=== PATIENT | male | born 1960 | race Caucasian/White ===

== ENCOUNTER 2023-12-13 10:16 | Outpatient (CLI) | payer OTHER, SELFPAY ==
--- NOTE | 2023-12-13 10:29 | XR_ITS ---
WS: [id number] Examination: XR chest 2V* [id number] Reason for Exam: CHRONIC COUGH Date: 12/13/2023 Comparison: None. Findings: The heart is not enlarged. There is widening of the right paramediastinal region. Adenopathy is of co ncern There is dominant right upper lobe infiltrate and right basilar effusion. There is no failure. The left lung appears well expanded. Impression: There is widening of the mediastinum concerning for adenopathy. A mass may be present. There is right upper lobe infiltrate and right pleural effusion. Further evaluation with CT of the chest is needed I discussed these findings and recommendations with Dr. Tiffanie Sanchez DO at 11:02 a.m. December 13 024..
== END 2023-12-13 10:17 | disposition home or self-care (01) ==
PROVIDERS: PCP Family Medicine; Visit Provider Family Medicine
DX: R05.3 Chronic cough (principal); J90 Pleural effusion, not elsewhere classified; R91.8 Other nonspecific abnormal finding of lung field
CPT/HCPCS: 71046

== ENCOUNTER 2023-12-14 13:56 | Outpatient (CLI) | payer OTHER, SELFPAY ==
--- NOTE | 2023-12-14 14:05 | CT_ITS ---
WS: [id number] CT chest w con* [id number] HISTORY: LUNG MASS TECHNIQUE: Axial imaging performed through the thorax. Coronal and sagittal reformats are submitted. All CT scans at [facility] use at least one of these dose optimization techniques: automated exposure control; mA and/or kV adjustment per patient size (includes targeted exams where dose is mat ched to clinical indication); or iterative reconstruction. CONTRAST: Omnipaque 350; 100 mL IV. DLP: 579.21 mGy.cm COMPARISON: Chest radiograph 12/13/2023 Abnormal appearance to the chest. There is a large mass centered at the RIGHT hilum which is encasing and partially narrowing the RIGHT proximal bronchi. This mass at its epicenter measures 5.9 x 8.5 cm. This mass is contiguous surround ing the bronchial tree and extending into the mediastinum. This is probably a large cluster of lymph nodes. There is additional soft tissue continuing into the central lung encasing the bronchial tree. Additional areas of reticular nodular opacification may be lymphangitic spread of tumor which is pred ominantly in the RIGHT upper lobe but also extends into the RIGHT middle and RIGHT lower lobes. There is marked thickening and nodularity along the pleural fissures. The soft tissue mass extends posteri or and may be invading the pleura in the upper thorax. There is an additional small layering RIGHT pl eural effusion and small small nodules in the lower lobe. There are numerous but very small nodules throughout the LEFT lung with the largest measuring 5 mm in the LEFT lower lobe. Cluster of lymph nodes RIGHT supraclavicular measures 3.8 x 3.1 cm. There are additional enlarged lym ph nodes prevascular and anterior mediastinum adenopathy extending paratracheal. One of the lymph nod es partially narrows the brachiocephalic junction. There is mild displacement of the SVC anterior. La rgest RIGHT drea collection is 6.8 x 4.9 cm. There is a large subcarinal lymph node measuring 4.4 x 3.2 cm. Additional aortopulmonary and LEFT hilar lymph nodes are abnormal but smaller. Normal size heart. There is a small pericardial effusion. There are a few small lymph nodes in the pe ricardiac fat. 10 mm nodule RIGHT breast. Upper abdomen: Numerous low-attenuation masses within the liver highly suspicious for metastatic dise ase. The largest is adjacent to the IVC measuring 2.3 cm. Portal vein is patent. Please note the enti re liver is not imaged on this chest CT. The visualized gallbladder is negative. Very minimal thicken ing of the RIGHT adrenal gland. There is a lobulated low-attenuation mass involving the LEFT adrenal gland measuring 3.3 x 1.8 cm. Nonobstructing calcifications LEFT renal pelvis. Osseous structures: Lytic area in the posterior T12 vertebral body suspicious for metastatic site. IMPRESSION: 1. There is a large solid mass centered at the RIGHT hilum extending into the central lung and the m ediastinum. This is probably lymphadenopathy/squamous cell carcinoma. Metastatic disease is likely. P ET/CT imaging would provide additional information. Recommend evaluation by bronchoscopy. 2. The largest mass centered at the RIGHT hilum measures 5.9 x 8.5 cm which is contiguous into the m ediastinum and hilum. Additional reticular nodular opacifications and pleural thickening throughout t he RIGHT lung are highly suspicious for lymphangitic spread and additional smaller metastatic sites. 3. Extensive lymphadenopathy throughout the chest including the RIGHT supraclavicular, mediastinum a nd hilum. 4. Small layering RIGHT pleural effusion. 5. Suspicious for metastatic liver disease. 6. Suspicious for LEFT adrenal metastasis. 7. Lytic area in the posterior T12 vertebral body may be osseous metastasis. 8. Additional very small LEFT pulmonary nodules may be benign inflammatory or metastatic. 9. 10 mm RIGHT breast nodule. Diagnostic mammography can be obtained.
[2023-12-14 14:37] LABS: Blood Urea Nitrogen 13 mg/dL (8-23); Glomerular Filtration Rate 135.6 mL/min (90-130)
[2023-12-14] MEDS: iohexol 350 mg/mL 500 mL Btl (per mL) IV (14:42)
== END 2023-12-14 13:57 | disposition home or self-care (01) ==
PROVIDERS: PCP Family Medicine; Visit Provider Family Medicine
DX: R91.8 Other nonspecific abnormal finding of lung field (principal)
CPT/HCPCS: 71260; 82565; 84520; Q9967

== ENCOUNTER 2023-12-20 14:56 | Oncology outpatient (recurring) (ONCR) | payer OTHER, SELFPAY | END 2023-12-20 23:59 | disposition home or self-care (01) | LOC: ONCMED 14:56 | PROVIDERS: PCP Family Medicine; Visit Provider Family Medicine | DX: Z53.9 Procedure and treatment not carried out, unspecified reason (principal) | CPT/HCPCS: 77295; 77300; 77334 ==

== ENCOUNTER 2023-12-21 14:24 | Outpatient (CLI) | payer OTHER, SELFPAY ==
--- NOTE | 2023-12-21 14:45 | MR_ITS ---
WS: [id number] MRI LUMBAR SPINE WITH CONTRAST TECHNIQUE: Sagittal T1, T2 and STIR imaging. Axial T1 and T2 imaging. Post gadolinium imaging was obt ained. CLINICAL INFORMATION: lung cancer; back pain COMPARISON: None. FINDINGS: Mild lumbar curve. No acute compression. Diffuse bony metastatic disease in the lower thoracic spine and lumbar spine and visualized bony sacrum. Additional smaller bony metastatic lesions in the cervical and thoracic spine incompletely evaluated on the pilot instructor imaging. Recommend MRI or bone scan in further evaluation. Tiny trace of epidural diseas e at RIGHT T12. L1-L2: No significant disc bulging. Mild facet arthropathy. Spinal canal and foramen are patent. L2-L3: Mild annular bulging. Moderate facet arthropathy. Mild LEFT foraminal narrowing. L3-L4: Mild disc bulging combination in combination with facet arthropathy and ligamentum flavum hype rtrophy results in moderate to severe central canal stenosis. Impingement of the traversing L4 nerve roots bilaterally. Mild foraminal narrowing. L4-L5: Mild annular bulging with narrowing of the subarticular recess. Moderate facet arthropathy. Sp inal canal and foramen are patent. L5-S1: Mild annular bulging. Slight effacement of the ventral thecal sac. Moderate facet arthropathy. Spinal canal and foramen are patent. IMPRESSION: Some images degraded due to motion artifact 1. Extensive bony metastatic disease throughout the visualized bony structures including the lower t horacic and lumbar spine extending into the bony pelvis and sacrum. No acute compression fractures. 2. Additional presumed smaller metastatic lesions in the cervical and thoracic spine incompletely ev aluated on the pilot instructor imaging. Recommend MRI or bone scan cervical and thoracic spine in further evalu ation. 3. Tiny trace of ventral epidural enhancement at RIGHT T12. No significant central canal stenosis. 4. Additional bony involvement of the lower thoracic and lumbar posterior elements 5. Chronic appearing moderate to severe central canal stenosis L3-4 due to disc bulging in combinati on with facet arthropathy and ligamentum flavum hypertrophy. 6. Mild annular bulging L4-5 with slight impingement subarticular recess bilaterally. 7. Multilevel foraminal narrowing described above.
[2023-12-21] MEDS: gadobenate dimeglumine 20 mL vial IV (15:10)
== END 2023-12-21 14:25 | disposition home or self-care (01) ==
LOC: RAD 14:24
PROVIDERS: PCP Family Medicine; Visit Provider Internal Medicine Medical Oncology
DX: C34.90 Malignant neoplasm of unspecified part of unspecified bronchus or lung (principal); M54.9 Dorsalgia, unspecified; M51.26 Other intervertebral disc displacement, lumbar region
CPT/HCPCS: 72158; A9577

== ENCOUNTER 2024-01-01 12:39 | Outpatient (CLI) | payer OTHER, SELFPAY ==
--- NOTE | 2024-01-01 17:20 | PETR_ITS ---
PROCEDURE INFORMATION: Exam: PET/CT Skull Base to Mid-thigh Exam date and time: 01/01/2024 2:12 PM Age: 63 years old Clinical indication: Condition or disease; Primary cancer: Metastatic malignant neoplasm lung mass LABS AND CLINICAL REPORTS: Glucose: 150 mg/dl Treatment strategy for malignancy (PET staging): Initial Staging (PI) TECHNIQUE: Imaging protocol: Following at least four-hour fasting and following the injection of radiopharmaceutical, low dose CT images were obtained. Then, PET images were obtained. Attenuation corrected images were constructed using the CT scan. Fused images of PET and CT were reviewed. The standardized uptake values (SUV) reported below are maximum values within a region of interest, expressed in gm/ml. Exam includes orbital meatal line to mid-thigh. Radiopharmaceutical: 13.14 mCi F-18 FDG (Fluorodeoxyglucose), IV. Time of imaging post radiopharmaceutical administration: 1 hour Injection site: Right antecubital COMPARISON: Lumbar spine MRI 12/21/2023, CT chest 12/14/2023 FINDINGS: Brain: Visualized brain has normal physiologic uptake. Pharynx: No abnormal uptake. Larynx: No abnormal uptake. Lungs, pleura and trachea: Uptake in the right hilar region is likely within lymph nodes contiguous with extensive region of masslike soft tissue density with elevated uptake which extends from the right lung apex into portions of the right upper lobe and right middle lobe and to a lesser extent the superior and anterior right lower lobe in a region measuring approximately 13.8 x 14.3 cm in the axial plane on series 3, image 92, SUV max 7.7. This region of consolidation is increased in size since the prior CT of 12/14/2023 Small scattered solid non radiotracer avid bilateral pulmonary nodules are noted without significant uptake, for example measuring 1 cm in the lateral left lower lobe on series 3, image 121 and in the anterior left upper lobe measuring 9 mm on series 3, image 88. Left lung calcified granulomas are noted. A moderate to large right pleural effusion is present. Heart: Normal physiologic uptake. Small pericardial effusion. Mediastinal space: No abnormal uptake. Liver: At least 8 avid low-density lesions are noted in the right and left liver lobes. Examples: Anterior left liver lobe measuring 2.8 x 2.1 cm on series 3, image 125, SUV max 4.7; left liver lobe measuring 4.7 x 3.0 cm on image 139, SUV max 4.5 and posterior right liver lobe measuring approximately 3.8 x 2.0 cm on image 148, SUV max 5.0. Gallbladder and bile ducts: No abnormal uptake. Pancreas: No abnormal uptake. Spleen: No abnormal uptake. Adrenal glands: No abnormal uptake. A thickened appearance of the adrenal glands is noted without well-defined nodularity. Kidneys and ureters: Normal physiologic uptake. An exophytic low-density lesion arising from the lateral aspect of the right renal inferior pole measures 1 cm on image 167 likely related to a benign cyst. Stomach and bowel: No abnormal uptake. Vasculature: No abnormal uptake. Diffuse atherosclerotic changes are noted. Lymph nodes: Radiotracer avid lymph nodes posterior to the right clavicle are noted, SUV max 4.7, for example measuring 2.4 x 1.8 in diameter on series 3, image 54. There are mediastinal, pericardial region and right hilar region radiotracer avid enlarged lymph nodes. Examples: Right paratracheal space measuring 1.9 cm in diameter on series 3, image 66, SUV max 5.1; a radiotracer avid lymph node in the pericardial fat pad/right paratracheal region anteriorly is noted measuring 2.1 x 2.7 cm on series 3, image 69, SUV max 6.5; confluent lymphadenopathy in the subcarinal region measuring 4.1 x 3.6 cm on image 94 demonstrates an SUV max 6.5. A prominent left aortopulmonary window lymph node measuring 2.6 x 0.9 cm on series 3, image 83 is noted with mild uptake, SUV max 2.3. Lymph nodes in the anterior inferior pericardial fat pad measuring up to 1.8 x 1.3 cm on series 3, image 114 are noted with low-level uptake, SUV max 2.3. A radiotracer avid lymph node in the region of the neto hepatis measuring 2.1 cm on series 3, image 146 is noted, SUV max 4.7. Bones/joints: There are radiotracer avid osseous lesions. Examples: Within the proximal right humeral shaft where there is an intramedullary soft tissue density measuring 1.8 x 1.2 cm on series 3, image 34, SUV max 3.2. Additional foci of radiotracer uptake in the osseous structures are noted without well-defined lesions on the CT images. Examples: proximal left humeral shaft, SUV max 3.7 on series 3, image 37; proximal left humeral metaphysis on image 43, SUV max 3.6; right femoral intertrochanteric region on image 234, SUV max 6.6. Degenerative changes in the spine are present with regions of elevated uptake in the thoracic and lumbar spine for example in the T12 vertebral body on image 137 in a 1.2 cm lucent lesion, SUV max 3.7 Soft tissues: A 1.3 cm in diameter soft tissue density nodule in the right breast is noted on series 3, image 89, SUV max 1.6. METRICS: Mediastinal blood pool: SUV max 1.6 [facility] [id number] IMPRESSION: 1. A radiotracer avid right perihilar mass is noted consistent with malignancy. There is increased surrounding radiotracer avid right lung consolidation contiguous with this region compared with the prior CT chest of 12/14/2023 which may represent additional areas malignancy and/or inflammatory or infectious involvement. 2. Moderate to large right pleural effusion. 3. Numerous scattered solid pulmonary nodules are noted bilaterally without significant uptake. Although lack of uptake favors a benign etiology, these nodules are concerning for metastases. 4. Radiotracer avid lymph nodes posterior to the right clavicle, in the mediastinum, right hilar region and neto hepatis are consistent with metastases. 5. Radiotracer avid low-density lesions in the liver are noted consistent with metastases. 6. Radiotracer avid osseous lesions are noted consistent with metastases. 7. A soft tissue density nodule in the right breast demonstrates low-level uptake and is indeterminate. Although low-level uptake favors a benign etiology, a malignant etiology cannot be entirely excluded. 8. Additional nonurgent findings as detailed above.
== END 2024-01-01 12:40 | disposition home or self-care (01) ==
LOC: RAD 12:46
PROVIDERS: PCP Family Medicine; Visit Provider Family Medicine
DX: C80.1 Malignant (primary) neoplasm, unspecified (principal); R91.8 Other nonspecific abnormal finding of lung field; J90 Pleural effusion, not elsewhere classified; R93.89 Abnormal findings on diagnostic imaging of other specified body structures; R92.8 Other abnormal and inconclusive findings on diagnostic imaging of breast
CPT/HCPCS: 78815; A9552

== ENCOUNTER 2024-01-08 09:06 | Day surgery (SDC) | payer OTHER, SELFPAY ==
[2024-01-08] VITALS (15 sets, daily range): BP systolic 90–133; BP diastolic 50–102; PULSE 90–100; RESP 18–20; TEMP 36.2–36.4; O2SAT 85–93; BMI 25.8
[2024-01-08] MEDS: sodium chloride 0.9% 1,000 ML 30 ML IV (09:43)
[2024-01-08 09:47] LABS: Glucose Point of Care 149 mg/dL (70-110)
--- NOTE | 2024-01-08 10:22 | W.PM.OPSUD ---
Surgery/Procedure H&P Update DATE OF PROCEDURE: January 08, 2024 DATE H&P PERFORMED: 12/25/23 H&P UPDATE INFORMATION: I have reviewed H&P completed within last 30 days, I have examined patient prior to procedure and No changes to prior documentation CHANGES TO PREVIOUS DOCUMENTATION: none PREOP DIAGNOSIS: Right hilar mass suspicious for malignancy PRIMARY INDICATION FOR PROCEDURE: CT evidence of right hilar mass suspicion for malignancy PLANNED PROCEDURE: Operation Date: 01/08/24 11:00 Proposed Procedures p Bronchoscopy(Not Applicable) - Isaak Beebe MD s BRONCH/EBUS/THORA(Not Applicable) - Isaak Beebe MD s Thoracentesis(Not Applicable) - Isaak Beebe MD Operation Date: 01/08/24 11:10 Proposed Procedures p Thoracentesis(Not Applicable) - Isaak Beebe MD Related Problem List Diagnoses (1) Suspected lung cancer:
--- NOTE | 2024-01-08 10:22 | ANES.PREANE2 ---
Pre-Anesthetic Assessment Height/Weight: Height 1.73 m Weight 77.111 kg Temp Pulse Resp BP Pulse Ox O2 Del Method 97.4 F L 95 18 121/60 90 Room Air 01/08/24 09:35 01/08/24 09:35 01/08/24 09:35 01/08/24 09:35 01/08/24 09:35 01/08/24 09:35 Operation Date: 01/08/24 11:00 Proposed Procedures p Bronchoscopy(Not Applicable) - Isaak Beebe MD s BRONCH/EBUS/THORA(Not Applicable) - Isaak eBebe MD s Thoracentesis(Not Applicable) - Isaak Beebe MD Operation Date: 01/08/24 11:10 Proposed Procedures p Thoracentesis(Not Applicable) - Isaak Beebe MD Familial anesthetic complications: None Was Beta Rk taken within 24 hours: N/A Was Clonidine taken within 24 hours: N/A Last intake: Intake Last Liquid Date 01/08/24 Last Liquid Time 08:00 Last Solid Date 01/06/24 Last Solid Time 12:00 Social Tobacco (encouraged smoking cessation) and No alcohol Exam alert, oriented x 3, clear to auscultation bilaterally and regular rate & rhythm Airway Mallampati: Class I Dentition: other (many missing, poor dentition) Pulmonary Chronic Obstructive Pulmonary Disease Lung cancer 2 l NC Metabolic Diabetes Mellitus and Thyroid Disease Anesthetic Plan ASA status: 3 Anesthesia: General Risk of > 500 ml blood loss (7ml/kg in children): No Medications/Allergies Home Medications Medication Instructions Recorded Confirmed Last Taken Type gemfibrozil 600 mg tablet 600 mg PO BID 12/20/23 01/07/24 01/07/24 History levothyroxine 25 mcg capsule 25 mcg PO DAILY 12/20/23 01/07/24 01/08/24 History lisinopril 30 mg tablet 30 mg PO DAILY 12/20/23 01/07/24 01/07/24 History metformin 1,000 mg tablet 1,000 mg PO BID 12/20/23 01/07/24 01/07/24 History sucralfate 100 mg/mL oral 10 ml PO QID GERD #420 mL 12/24/23 01/07/24 01/07/24 Rx suspension (Carafate) ondansetron 4 mg disintegrating 4 mg PO Q8H #24 tabs 01/02/24 01/07/24 01/08/24 Rx tablet Portable oxygen concentrator and #1 ea 01/03/24 01/07/24 01/07/24 Rx supplies tiotropium bromide 2.5 2 puff inhalation DAILY #4 grams 01/03/24 01/07/24 01/08/24 Rx mcg/actuation mist for inhalation (Spiriva Respimat) albuterol sulfate 90 mcg/actuation 2 puff inhalation QID PRN 01/07/24 01/07/24 01/07/24 History aerosol inhaler Shortness Of Breath Or Wheezing bisoprolol 10 1 tab PO DAILY 01/07/24 01/07/24 01/08/24 History mg-hydrochlorothiazide 6.25 mg tablet morphine 30 mg immediate release 15 mg PO Q8H PRN pain 01/07/24 01/07/24 01/08/24 History tablet mirtazapine 15 mg tablet (Remeron) 15 mg PO BEDTIME #30 tabs 01/08/24 01/08/24 01/07/24 Rx Allergies Allergy/AdvReac Type Severity Reaction Status Date / Time Sulfa (Sulfonamide Allergy ALGY-Rash Verified 12/25/23 15:48 Antibiotics) Current Medications Generic Name Dose Route Start Last Admin Trade Name Freq PRN Reason Stop Dose Admin Sodium Chloride 1,000 mls @ 30 mls/hr 01/08/24 09:15 01/08/24 09:43 Sodium Chloride 0.9% IV 01/09/24 09:14 30 mls/hr .Q24H KUSHAL Administration PFSH Anesthesia Medical History GERD (gastroesophageal reflux disease) Hypothyroidism Type 2 diabetes mellitus Hyperlipidemia Hypertension Surgical History Amputation of finger of left hand Distal left index finger H/O left cataract extraction Status post surgical removal of malignant neoplasm of skin Basal cell skin cancer Social History Smoking and tobacco/nicotine status: current every day tobacco/nicotine user cigarettes Packs smoked per day: 1 [ Other cigarette details: He previously smoked 2 to 3 packs of cigarettes daily, now 1 pack/day.] Alcohol intake: never Data Anesthesia Cardiac Studies: No Data to Display
--- NOTE | 2024-01-08 10:35 | SUR.OPER ---
Ultrasound guided thoracentesis performed by Dr. Beebe in pre-op area. Time out completed and area marked per Dr. Beebe. 10 mL 1% Lidocaine used for local prior to procedure. 1500 mL clear, telma fluid removed. Fluid sent to lab as ordered. CXR completed following procedure. Pt tolerated well.
[2024-01-08 11:08] LABS: Blood Urea Nitrogen 36 mg/dL (8-23); Calcium 10.3 mg/dL (8.5-10.5); Carbon Dioxide 26 mmol/L (22-29); Chloride 95 mmol/L (98-107); Creatinine Clr Calc Pharmacy 84.3089; Glucose 115 mg/dL (65-115); Osmolality Calculated 295 mOsm/kg (285-295); Sodium 138 mmol/L (136-145)
[2024-01-08 11:10] LABS: Anion Gap 20.7 (5-19); Potassium 3.7 mmol/L (3.5-5.1)
--- NOTE | 2024-01-08 11:11 | P.PCN_ITS ---
Outpatient Procedures Thoracentesis Consent signed and on chart: Yes Time Out Performed: Yes Procedure: therapeutic thoracentesis and diagnostic thoracentesis Location: Right Local anesthetic used: lidocaine 1% Bedside ultrasound used: yes, pleural effusion confirmed and location marked Preparation: sterile prep and drape and 10 blade used to make angelo in skin Amount of fluid obtained (mL): 1,500 Fluid: clear Size of needle used: 19 Post Procedure Exam: awake, alert, normal BP, normal HR and normal SpO2 Post-procedure chest x-ray ordered: Yes Estimated blood loss (mL): 5 Patient Tolerated Procedure: well and no complications Procedure Note: Pulmonary & Critical Care Medicine Procedure - Ultrasound guided Thoracentesis Procedure: CPT code 50001 thoracentesis, needle or catheter, aspiration of the pleural space; with imaging guidance Indication: Worsening right pleural effusion. C56.2 Screening Representative(s): Isaak Beebe MD [facility] Clinical history: 63-year-old male with past medical history of hypertension, hyperlipidemia, type 2 diabetes, referred by oncology for biopsies of right hilar mass. chest CT on 12/14/2023 showed a large mass centered at the right hilum which was noted to encase and partially narrow the right proximal bronchi. At the epicenter it measured 5.9 x 8.5 cm, but it was noted to be contiguous surrounding the bronchial tree and extending into the mediastinum. There was also likely a large cluster of lymph nodes and additional soft tissue continuing into the central lung and encasing the bronchial tree. There were areas of reticulonodular opacification consistent with lymphangitic spread of tumor, predominantly in the right upper lobe but also involving the right middle and right lower lobes. There was noted to be a small layering right pleural effusion and small nodules in the lower lobe. There were numerous very small nodules throughout the left lung, largest measuring 5 mm. Patient had a PET CT scan 01/02/2024-showed radiotracer avid right perihilar mass consistent with malignancy. Moderate to large right pleural effusion. He has suspected metastasis to liver, clavicle or lymph nodes, mediastinum. Patient reported smoking 3-4 Packs a day for 50 years. Today he is scheduled for thoracentesis for therapeutic as well as diagnostic purposes. Technique: The study was performed in an ACR accredited facility. Medication reconciliation form reviewed and any changes related this procedure resolved. Report: The procedure for thoracentesis was explained to the patient including the risks, benefits and possible complications. The patient was given the opportunity to ask questions, wished to proceed, and signed the written informed consent form. Using ultrasound guidance, a safe route of access was identified into the right pleural space. The site was then prepped and draped using maximal sterile barrier technique. The 1% lidocaine was used for local anesthetic. With sonographic guidance, a 6 [place] thoracentesis catheter was placed with return of 5 cc straw-colored pleural fluid. The catheter was slipped into the pleural cavity and approximately 1.5 L of straw-colored pleural fluid was removed. The patient tolerated the procedure well without any immediate complications. Impression: 1. Successful ultrasound-guided right thoracentesis with removal of approximately 1.5 L of straw-colored pleural fluid. ICD-10 code-J90 pleural effusion, not elsewhere classified
--- NOTE | 2024-01-08 11:13 | XR_ITS ---
WS: [id number] Portable AP upright chest, 01/08/2024 Clinical Data: post right lung thoracentesis Comparison: Two-view chest, 12/13/2023 Findings: The right pleural effusion has diminished. There is increased opacification in the right up per lobe which probably represents atelectasis. The right hilar mass is obscured by this atelectasis. The left lung remains clear. No pneumothorax is present. The heart size is normal. Impression: 1. Decrease in right pleural effusion with no right pneumothorax. 2. Increased opacification in right upper lobe which probably represents peripheral atelectasis.
[2024-01-08 11:57] LABS: Apprearance, Body Fluid TURBID; Color, Body Fluid YELLOW; Cyto Order Verification Order Verified; PATH Referral YES
[2024-01-08] MEDS: lidocaine 1% INJ 10 mL (per mL) XX (11:57)
[2024-01-08 11:58] LABS: Fluid Laterality RIGHT PLEURAL FLUID
[2024-01-08 12:02] LABS: Body Fluid Polynuclear #Cells 0.042; Body Fluid WBC 577 /uL; Monocytes # Body Fluid 0.535
[2024-01-08 12:19] LABS: Apprearance, Bronch Wash Hazy (CLEAR); Color, Bronc Wash Slight Pink; Cyto Order Verification Order Verified; PATH Referral Yes; Total Cells Counted Bronch 200
[2024-01-08 12:23] LABS: Albumin Body Fluid 2.8 g/dL; Amylase Body Fluid 49 U/L; Cholesterol Body Fluid 89 mg/dL (0-200); Fluid Alkaline Phos. 30 IU/L; LDH Body Fluid 982 U/L; Total Protein Pleural Fluid 4.6 g/dL; Triglycerides Body Fluid 69 mg/dL (0-150); Uric Acid Body Fluid 10 mg/dL
--- NOTE | 2024-01-08 13:18 | XR_ITS ---
WS: [id number] Portable AP upright chest, 01/08/2024, 1248 hours Clinical Data: post-bronchoscopy/EBUS Comparison: Portable chest, 01/08/2024, 1028 hours Findings: Right upper lobe opacification has not changed. The right pleural effusion has not reaccumu lated. There is a patchy opacity in the medial aspect of the right lower lobe which has developed sin ce the prior x-ray. The left lung remains clear. Monitor leads are on the chest wall. The heart remai ns the same. Impression: 1. No change in right upper lobe opacification. 2. Increased opacity in the medial base of the right lower lobe.
--- NOTE | 2024-01-08 14:10 | ANE.PACU2 ---
Inpatient post-anesthesia follow up: Airway intact: Yes Vital signs: Temperature 97.6 F Pulse Rate 93 Respiratory Rate 20 Blood Pressure 120/63 Pulse Oximetry 91 Oxygen Delivery Me thod Nasal Cannula Oxygen Flow Rate 2 Fraction of Inspir ed Oxygen Hydration adequate: Yes Nausea and vomiting: No Pain level: 1 Mental status: Baseline
--- NOTE | 2024-01-08 18:57 | PM.OP ---
Operative Report Date of procedure: January 08, 2024 Pre-op diagnosis: Suspected malignancy Post-op diagnosis: Same Procedure done: Procedure: Dx Bronchoscope w/BAL Bronchoscopy w/ therapeutic aspiration of the tracheobronchial tree (clearance of airway secretions, removal of mucus plugs) EBUS Sampling >3 nodes Surgeon: Isaak Beebe MD Brief History: 63-year-old male with past medical history of hypertension, hyperlipidemia, type 2 diabetes, referred by oncology for biopsies of right hilar mass. Chest CT on 12/14/2023 showed a large mass centered at the right hilum which was noted to encase and partially narrow the right proximal bronchi. At the epicenter it measured 5.9 x 8.5 cm, but it was noted to be contiguous surrounding the bronchial tree and extending into the mediastinum. There was also likely a large cluster of lymph nodes and additional soft tissue continuing into the central lung and encasing the bronchial tree. There were areas of reticulonodular opacification consistent with lymphangitic spread of tumor, predominantly in the right upper lobe but also involving the right middle and right lower lobes. There was noted to be a small layering right pleural effusion and small nodules in the lower lobe. There were numerous very small nodules throughout the left lung, largest measuring 5 mm. Patient had a PET CT scan 01/02/2024-showed radiotracer avid right perihilar mass consistent with malignancy. Moderate to large right pleural effusion. He has suspected metastasis to liver, clavicle or lymph nodes, mediastinum. Patient reported smoking 3-4 Packs a day for 50 years. Given his significant smoking history-PET active lesions is highly suspicious for malignancy-hence today scheduled for endobronchial ultrasound-guided biopsies of hilar/mediastinal PET active lesions Procedure: Procedure: Dx Bronchoscope w/BAL Bronchoscopy w/ therapeutic aspiration of the tracheobronchial tree (clearance of airway secretions, removal of mucus plugs) EBUS Sampling >3 nodes Indication: PET active mediastinal/hilar lymph nodes-rule out Malignancy Anesthesia: General anesthesia. Local anesthesia: The phill in the right and left mainstem bronchi were anesthetized with 1% lidocaine, 3 mL. Description of the procedure: The procedure was explained to the patient and the consent was obtained. The patient was brought to the OR. The patient underwent induction for general anesthesia and initially LMA was placed. The bronchoscope was introduced and the lumen noted to be opposing vallecula. Patient did not ventilate well and so bronchoscope was retracted and anesthesia removed LMA and placed 8.5 cm endotracheal tube. The bronchoscope was advanced through the ET tube into the trachea. Tracheal mucosa appeared normal, no endotracheal lesion was seen. The phill was sharp. 1 mL each of 1% lidocaine was instilled in the trachea the right and left mainstem bronchi for local anesthesia. There were thick mucus secretions which were suctioned right away. In a systematic manner bilateral bronchial tree was then examined. The bronchoscope was then introduced into the right mainstem bronchus. The right upper lobe, right middle lobe and right lower lobe bronchi were examined up to the third subsegmental level. The mucosa of right upper lobe segments as well as lower lobe segments were significantly edematous with no obvious endobronchial lesion. Particularly the right upper lobe segments opening is significantly narrowed. There were Mucous secretions which were suctioned right away. The bronchoscope was advanced into the left mainstem bronchus. The left upper lobe, and lingula were examined up to the third subsegmental level and no abnormalities were identified. Mucosa of left side tracheal bronchial tree appeared normal with no endobronchial lesion. There were clear secretions which were suctioned right away. Bronchoscope was wedged at the opening of anterior segment of right upper lobe, 50 cc normal saline instilled and obtained 22 cc blood-tinged bronchoalveolar lavage. Bronchoscope was retracted and linear endobronchial Ultrasound (EBUS) was introduced. An EBUS exam[[id number] vs [id number]] was performed: - Stations 11 L, 7, 4R, 11 R were enlarged > 5mm and sampled in that order. - Stations 4L, 10 R, 10 L were also scanned but <5mm and thus did not meet criteria for sampling. Level 11L station was identified with the EBUS scope at the LLL/L hilum and 4 passes were made using a 21 G Olympus TBNA needle. Level 7 station was identified with the EBUS scope at the medial LMSB/RMSB and 5 passes were made using a 21 G Olympus TBNA needle. Level 4R station was identified with the EBUS scope at the lateral RMSB and 5 passes were made using a 21 G Olympus TBNA needle. Level 11R station was identified with the EBUS scope at the RBI/R hilum and 5 passes were made using a 21 G Olympus TBNA needle. Additional samples were taken from the above lymph nodes and collected into RPMI media for consideration of lymphoma Rapid onsite path evaluation (KARLY) was not utilized for this case. Following completion of all diagnostic and therapeutic procedures, hemostasis was verified. The scope was removed and procedure concluded. Samples: 1. Bronchoalveolar lavage was performed after wedging the bronchoscope into the medial segment of right middle lobe. 30 mL of saline was instilled, fluid return was 13 mL. Bronchoalveolar lavage specimen was sent for cell count and differential, gram stain and culture, cytology, fungal culture B. EBUS guided Fine-needle aspiration biopsies were taken from station 4L, station 11 L, station 7 and station 11. 1. Total of 4 passes were made using needle aspiration from station 11 L; material was placed in formalin; 2. Total of 5 passes were made using needle aspiration from station 7; material was placed in formalin, 1 passes were placed in RPMI 3. Total of 5 passes were made using needle aspiration from station 4L; material was placed in formalin; 1 passes in RPMI 4. Total of 5 passes were made using needle aspiration from station 11 R: material was placed in formalin; 1 passes in RPMI Complications: None.The patient was extubated and brought to the PACU in stable condition. Disposition: Patient can be discharged home in stable condition. Pt and his and son are aware that I am going to call them to update final biopsy results once available.
[2024-01-09 14:12] LABS: Lymphoma Profile (BBPL) See Report
[2024-01-30 13:00] LABS: PD-L1 (Clone 22C3) by IHC BBPL See Report
== END 2024-01-08 14:10 | disposition home or self-care (01) ==
PROVIDERS: Anesthesiology; PCP Family Medicine; Visit Provider Internal Medicine Pulmonary Disease
PROC: 0BJ08ZZ Inspection of Tracheobronchial Tree, Via Natural or Artificial Opening Endoscopic (ICD-10-PCS; CPT 31622; principal; 2024-01-08 10:50)
PROC: BB4BZZZ Ultrasonography of Pleura (ICD-10-PCS; 2024-01-08 10:50)
PROC: (CPT 32554; 2024-01-08 10:50)
DX: C34.91 Malignant neoplasm of unspecified part of right bronchus or lung (principal); I10 Essential (primary) hypertension; E78.5 Hyperlipidemia, unspecified; E11.9 Type 2 diabetes mellitus without complications; J90 Pleural effusion, not elsewhere classified; J44.9 Chronic obstructive pulmonary disease, unspecified; Z99.81 Dependence on supplemental oxygen; E03.9 Hypothyroidism, unspecified; F17.210 Nicotine dependence, cigarettes, uncomplicated
CPT/HCPCS: 31624; 31645; 31653; 36416; 71045; 80048; 80503; 82042; 82150; 82465; 82945; 82962; 83615; 83986; 84075; 84157; 84315; 84478; 84560; 87015; 87070; 87075; 87102; 87116; 87205; 87206; 87801; 88112; 88184; 88185; 88305; 88341; 88342; 89050; J2405; J2704; J3010; J7030

== ENCOUNTER 2024-01-11 08:13 | Oncology outpatient (recurring) (ONCR) | payer OTHER, SELFPAY ==
--- NOTE | 2023-12-24 14:35 | N.ONRAD NP_ITS ---
Radiation Oncology New Patient Visit Patient: Bob Palomo MR#: [id number] : 1960> Age: 63> Sex: Male> Dictated by: Dr. Myriam Last Date of Service: 12/24/2023 Referring Physician(s) : Aris Gallagher M.D. Diagnosis: C79.51 - secondary malignant neoplasm of bone, Diagnosed 12/14/2023 (active). Radiotherapy to date: Summary > No prior radiation therapy. Chief Complaint / History of Present Illness: Patient is 63-year-old gentleman who says that somewhere between and [place] he began to feel poorly. He began to have back pain that has progressively worsened since then. He then after the first of the year began to have increasing shortness of breath associated with a cough. This is actually what brought him to medical attention. By the time he was evaluated however his back pain he said was out of 50 on the pain scale. He also during that time has lost 60 pounds. He had initially a chest x-ray which showed widening of the mediastinum concerning for mass along with a right pleural effusion. He subsequently had a CT of the chest on December 14 which showed a large solid mass at the right hilum extending into the central lung in the mediastinum with lymphadenopathy which measured 5.9 x 8.5 cm in size. He had extensive lymphadenopathy throughout the chest and into the right supraclavicular area. He had small right pleural effusion liver metastasis and a left adrenal mass. He was also noted to have a lesion at T12. In addition he also had pulmonary nodules throughout the left lung. When he was evaluated late last week his pain was so severe he has been sent today prior to his bronchoscopy and biopsy to help manage his pain control. Current Medications: bisoprolol fumarate 10 mg PO DAILY MS IR 15 mg 1-2 every 4-6 hours gemfibrozil 600 mg PO BID levothyroxine 25 mcg PO DAILY lisinopril 30 mg PO DAILY metformin 1,000 mg PO BID Allergies: Sulfa Medical History: GERD (gastroesophageal reflux disease) Hypothyroidism Type 2 diabetes mellitus Hyperlipidemia Hypertension. Surgical History: Amputation of finger of left hand Distal left index finger H/O left cataract extraction Status post surgical removal of malignant neoplasm of skin Basal cell skin cancer Family History: Social History: Smoking and tobacco/nicotine status: current every day tobacco/nicotine user cigarettes Packs smoked per day: 1 [ Other cigarette details: He previously smoked 2 to 3 packs of cigarettes daily, now 1 pack/day.] Alcohol intake: none Current Complaints / Review of Systems: . His current complaints related mainly to his back which is the lumbar spine down to the sacral area. This pain does not radiate. It does limit his ability to move or walk. Vital Signs: Performed on 12/24/2023 1:31 PM BMI - 29.407 kg/m2 (high), Height - 68 in, Weight - 193.4 lbs, Temperature - 98.2 f, Pulse - 112 /min (high), Respiration - 18 /min, O2 Sat - 87 % (low), Pain - 10, Fatigue - 0 and BP - 140/ 89 mm(hg). Physical Exam: General: Patient is in no apparent distress sitting in the chair. He is accompanied by his . HEENT: Normocephalic atraumatic. Pupils are equal, sclera clear, extraocular muscles intact Cardiovascular: Regular rate and rhythm Pulmonary: Respiratory rate is regular nonlabored Thorax: He has no areas of palpable tenderness along the cervical thoracic or lumbar spine. Skin: Warm and dry without ecchymoses Extremities: Without clubbing cyanosis or edema Abdomen: Abdomen is still mildly protuberant it currently is nontender although he did have an area that was quite tender in the epigastric area at his last evaluation. Neurological: Alert and orient x 3. Gait and speech within normal limits. No focal motor deficits. Psych: Affect appropriate for current situation Performance Status: 80 Pathology: Primary, c79.51 - secondary malignant neoplasm of bone, Diagnosed 12/14/2023 (active) . Imaging: See HPI Impression: Widely metastatic lung cancer Plan: At this time he is currently undergoing workup. He has a PET scan scheduled for later this month. He will be visiting with pulmonary as well this week to discuss biopsy. I reviewed with him that with his current pattern of abnormalities on his imaging that is more than likely going to be a lung cancer. We talked about how he was here to basically start the radiation and get his pain under control while he continues through his workup. I reviewed with him the simulation process. We discussed the daily treatment regiment. We discussed the risk and side effects of treatment with acute and long-term. At this point he is anxious to get started. He is also having issues getting his pain medicine. Apparently [place] only gave him 20 pills. I will send a new prescription so that he can receive additional medication which she will be able to cut in half. At this point he also says he is having quite a bit of reflux which is not responding to his typical medications. Will go ahead and try the Carafate slurry and see if this will help. He will otherwise go undergo simulation today and begin his treatments within a day or 2. Signed by: 12/24/2023 2:33:26 PM <<Signature on File>> Time spent with patient:45 CPT Code: CPT Code:
--- NOTE | 2024-01-01 09:08 | ONCRAD TMN_ITS ---
Radiation Oncology Weekly Treatment Management Patient: Bob Palomo MR#: [id number] : 1960> Attending Physician: Femi Miranda Date of Service: 01/01/2024 Referring Physician(s) : Aris Gallagher M.D. Diagnosis: C79.51 - Secondary malignant neoplasm of bone, Diagnosed 12/14/2023 (Active) Radiotherapy to date: Course: TL Spine 2023, Treatment Site: SPINE [id number], Ref. ID: [id number], Energy: 15X, Dose/Fx (cGy): 300, #Fx: 2 / 10, Dose Correction (cGy): 0, Total Dose Delivered (cGy): 600, Start Date: 12/31/2023, Elapsed Days: 1 Reason for visit: The patient is being seen today as part of their regularly scheduled weekly on treatment visits to assess for acute toxicities from radiotherapy. Review of Systems: Patient notes that his pain level is 4/10 today. He takes pain medication in the morning and evening. He is present today with his and son. His indicates that he is up and down at night but is able to rest during the daytime if fatigued. He denies any constipation. He has occasional productive sputum with scant amounts of blood. Vital Signs: Performed on 01/01/2024 8:14 AM BMI - 28.616 kg/m2 (high), Height - 68 in, Weight - 188.2 lbs, Temperature - 96.6 f, Pulse - 109 /min (high), Respiration - 18 /min, O2 Sat - 97 %, Pain - 4, Fatigue - 0 and BP - 145/ 69 mm(hg)(high/). Physical Exam: Imaging: Radiation therapy imaging related to accurate target localization (i.e. KV, MV and CBCT) was reviewed. Appropriate changes, if any, were made to ensure treatment accuracy. Plan: Patient has minimal treatment related side effects. Plan to continue prescribed treatment. Signed by: Femi Miranda 01/01/2024 9:07:52 AM
--- NOTE | 2024-01-03 09:48 | ONCRAD TMN_ITS ---
Radiation Oncology Weekly Treatment Management Patient: Bob Palomo MR#: [id number] : 1960 Attending Physician: Femi Miranda Date of Service: 01/03/2024 Referring Physician(s) : Aris Gallagher M.D. Diagnosis: C79.51 - Secondary malignant neoplasm of bone, Diagnosed 12/14/2023 (Active) Radiotherapy to date: Course: TL Spine 2023, Treatment Site: SPINE [id number], Ref. ID: [id number], Energy: 15X, Dose/Fx (cGy): 300, #Fx: 4 / 10, Dose Correction (cGy): 0, Total Dose Delivered (cGy): 1,200, Start Date: 12/31/2023, Elapsed Days: 3 Reason for visit: The patient is being seen today as part of their regularly scheduled weekly on treatment visits to assess for acute toxicities from radiotherapy. Patient is seen today with his and son. He experienced nausea yesterday and was prescribed Zofran ODT. He also is experiencing anorexia. He is on MS Contin, metformin, and several additional medications. His indicates that he is experiencing confusion and some hallucinations including seeing people and a white dog. He is scheduled for thoracentesis next Sunday. His indicates he has not eaten today and has not taken his metformin yet. He was given Ensure as a supplement. Review of Systems: O2 saturation on room air was 87%. Vital Signs: Patient was evaluated and resting O2 saturation at the time of the evaluation was 85% on room air. After walking approximately 200 feet his O2 saturations dropped to 83%. After resting approximately 2 minutes his O2 saturation increased only to 88% on room air. Blood sugar was 177. Physical Exam: At the time of examination patient was alert oriented and pleasant. PERRL, EOMI. Cranial nerves II through XII grossly intact. Speech intact. He has diminished breath sounds over the right lung lam. Abdomen soft nontender. Bowel sounds present normoactive. Patient ambulatory without assistance. Imaging: Radiation therapy imaging related to accurate target localization (i.e. KV, MV and CBCT) was reviewed. Appropriate changes, if any, were made to ensure treatment accuracy. Plan: Supplemental oxygen will be ordered. Patient was given Glucerna and instructed not to use the Ensure. He will be taking his metformin when he gets home this morning. PET/CT was reviewed with the patient???s and son. Lungs noted uptake in the right hilar region within the lymph nodes contiguous with extensive region of masslike soft tissue density with elevated uptake which extends from the right lung apex into portions of the right upper lung and right middle lobe and to a lesser extent the superior and anterior right lower lobe with a region measuring approximately 13.8 x 14.3 cm in the axial plane. This region is consult of consolidation is increased in size since the prior CT December 14, 2023. At least 8 avid low-density lesions are noted in the right and left liver lobes. Anterior left liver lobe measuring 2.8 x 2.1 cm, left liver lobe measuring 4.3 x 3.0 cm and right liver lobe measuring 3.8 x 2.0 cm. Radiotracer avid lymph nodes in the posterior right clavicular area are noted measuring 2.4 x 1.8 cm in diameter. There are mediastinal, pericardial region and right hilar region radiotracer avid enlarged lymph nodes. There are also radiotracer avid osseous lesions within the right humeral shaft measuring 1.8 x 1.2 cm. Additional spots are noted in the left humeral shaft, proximal left humeral metaphysis, right femoral intertrochanteric region, and regions of elevated uptake in the thoracic and lumbar spine. A soft tissue density is noted in the right breast measuring 1.3 cm. Patient has extensive disease and his prognosis is poor. Family indicates they will check with Dr. Gallagher to see if there are any additional chemotherapy options versus hospice care. Plan to continue prescribed palliative radiation therapy to the spine. Signed by: Femi Miranda 01/03/2024 9:46:25 AM
--- NOTE | 2024-01-08 09:14 | ONCRAD TMN_ITS ---
Radiation Oncology Weekly Treatment Management Patient: Bob Palomo MR#: [id number] : 1960 Attending Physician: Josafat Ma M.D. Date of Service: 01/08/2024 Referring Physician(s) : Aris Gallagher M.D. Diagnosis: C79.51 - Secondary malignant neoplasm of bone, Diagnosed 12/14/2023 (Active) Radiotherapy to date: Course: TL Spine 2023, Treatment Site: SPINE [id number], Ref. ID: [id number], Energy: 15X, Dose/Fx (cGy): 300, #Fx: 7 / 10, Dose Correction (cGy): 0, Total Dose Delivered (cGy): 2,100, Start Date: 12/31/2023, Elapsed Days: 8 Reason for visit: The patient is being seen today as part of their regularly scheduled weekly on treatment visits to assess for acute toxicities from radiotherapy. Review of Systems: No pain now. Swallowing ok but has a dry mouth. Smoking less 1 pack a week. No appetite and losing weight. Nauseated some times and has Zofran for this. Vital Signs: Performed on 01/08/2024 8:43 AM BMI - 27.278 kg/m2 (high), Height - 68 in, Weight - 179.4 lbs, Temperature - 97.2 f, Pulse - 97 /min, Respiration - 16 /min, O2 Sat - 90 % (low), Pain - 0, Fatigue - 5 and BP - 111/ 68 mm(hg). Physical Exam: omitted Imaging: Radiation therapy imaging related to accurate target localization (i.e. KV, MV and CBCT) was reviewed. Appropriate changes, if any, were made to ensure treatment accuracy. Plan: Good tolerance of treatment. Will add Remeron 15 mg q HS for appetite. Lung bx planned today. Signed by: Josafat Ma 01/08/2024 9:13:10 AM
--- NOTE | 2024-01-11 14:53 | N.ONRD TS_ITS ---
Radiation Oncology Treatment Summary Patient: Bob Palomo MR#: [id number] : 1960 Age: 63 Sex: Male Dictated by: Josafat Ma M.D. Date of Service: 01/11/2024 Referring Physician(s) : Aris Gallagher M.D. Diagnosis: C79.51 - Secondary malignant neoplasm of bone, Diagnosed 12/14/2023 (Active) Radiotherapy to Date: Course: TL Spine 2023, Treatment Site: SPINE [id number], Ref. ID: [id number], Energy: 15X, Dose/Fx (cGy): 300, #Fx: 10 / 10, Correction (cGy): 0, Total Dose Delivered (cGy): 3,000, Start Date: 12/31/2023, End Date: 01/11/2024, Days: 11 Clinical Summary: The patient tolerated RT well. He had back pain well controlled. He had no swallowing difficulty. Remeron 15 mg q HS was added for appetite stimulation as he had no appetite and was loosing weight. Lung bx occurred on 01/08/2024 with results pending at the conclusion of treatment. Plan: End of treatment today. He will return to Dr Gallagher for evaluation after lung biopsy results to discuss systemic treatment. Follow up in one month. Signed by: Josafat Ma>01/11/2024 2:51:55 PM <<Signature on File>>
== END 2024-01-15 23:59 | disposition home or self-care (01) ==
PROVIDERS: PCP Family Medicine; Visit Provider Radiology Radiation Oncology
DX: Z51.0 Encounter for antineoplastic radiation therapy (principal); C79.51 Secondary malignant neoplasm of bone
CPT/HCPCS: 77290; 77295; 77300; 77334; 77336; 77387; 77412; 99024; 99205

== ENCOUNTER 2024-01-12 07:42 | Emergency (ER) | payer OTHER, SELFPAY ==
[2024-01-12] VITALS (16 sets, daily range): BP systolic 98–133; BP diastolic 64–89; PULSE 115–122; RESP 18–26; TEMP 36.9; O2SAT 75–93; BMI 26.6
--- NOTE | 2024-01-12 07:58 | XRR_ITS ---
PROCEDURE INFORMATION: Exam: XR Chest Exam date and time: 01/12/2024 8:17 AM Age: 63 years old Clinical indication: Cough and dyspnea; Additional info: Dyspnea/cough TECHNIQUE: Imaging protocol: Radiologic exam of the chest. Views: 1 view. COMPARISON: CR XR chest 1V portable [id number] 01/08/2024 12:47 PM FINDINGS: Lungs: Similar appearance of dense right upper and mid lung zone opacities compatible with known right hilar mass with associated postobstructive pneumonia. Similar right lower lung zone patchy airspace opacities. No definite left lung infiltrate or consolidate. Pleural spaces: No pleural effusion. No pneumothorax Heart/Mediastinum: Heart size normal Bones/joints: No definite osseous destructive lesions are seen XR/XR chest 1V portable [id number] IMPRESSION: Very similar right lung opacities as above.
--- NOTE | 2024-01-12 07:58 | CTR_ITS ---
PROCEDURE INFORMATION: Exam: CT Head Without Contrast Exam date and time: 01/12/2024 8:27 AM Age: 63 years old Clinical indication: Altered mental status/memory loss; Confusion or disorientation; Additional info: AMS TECHNIQUE: Imaging protocol: Computed tomography of the head without contrast. Radiation optimization: All CT scans at this facility use at least one of these dose optimization techniques: automated exposure control; mA and/or kV adjustment per patient size (includes targeted exams where dose is matched to clinical indication); or iterative reconstruction. COMPARISON: PT PET skulltothi INITIAL [id number] 01/01/2024 2:12 PM RADIATION DOSE METRICS: Total DLP (mGy-cm): 1015.68 FINDINGS: Brain: 8 mm focus of right parietal peripheral/cortical hyperdense hemorrhage with mild surrounding edema, and very mild local mass effect.. 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 Tiny old right posterior internal capsule lacunar infarct. Barros-white differentiation is maintained. No extra-axial fluid collection. No findings to suggest recent ischemic infarct. Cerebral ventricles: No ventriculomegaly. Paranasal sinuses: Visualized sinuses are unremarkable. No fluid levels. Mastoid air cells: Left mastoid effusion re-identified. Bones/joints: Unremarkable. No acute fracture. Soft tissues: Unremarkable. CT/CT head wo con* [id number] IMPRESSION: 1. Right parietal hyperdense intraparenchymal hemorrhage as above. Given the patient's history of metastatic lung cancer, hemorrhagic metastases is a consideration. 2. Findings discussed with Dr. Beyer at 9:00 a.m. on 01/12/2024. 3. Left mastoid effusion.
--- NOTE | 2024-01-12 07:59 | ECG_ITS ---
[facility] Test Date: 2024-01-12 Pat Name: Bob Palomo Department: Room: Gender: Male Checker: : 1960 Requested By: Garcia Drake Order Number: [id number] Inga MD: Felix Grant M.D. Measurements Intervals [place] Rate: 117 P: 57 [place]: 132 QRS: 50 QRSD: 91 T: 74 QT: 300 QTc: 419 Interpretive Statements SINUS TACHYCARDIA WITH OCCASIONAL SUPRAVENTRICULAR PREMATURE COMPLEXES NONSPECIFIC T-WAVE ABNORMALITY No previous ECG available for comparison Electronically Signed On 01-12-2024 15:51:59 CDT by Felix Grant M.D. [id number]
--- NOTE | 2024-01-12 07:59 | ED_ITS ---
HPI - Altered Mental Status 2 General: Chief Complaint: Altered Mental Status Stated Complaint: swollen legs Time Seen by Provider: 01/12/24 07:53 Source: patient and family Mode of arrival: wheelchair History of Present Illness: 63-year-old male presents emergency room with altered mental status. Family brought him in saying they want to have his legs checked out they were swollen. Patient was reviewed relatively recently diagnosed lung cancer pathology report on the chart shows squamous cell CA. Recent PET scan shows widespread metastasis to the thoracic and lumbar spine as well as to the pelvis and liver. There were also multiple nodules in the lungs that did not have increased uptake but were suspicious for metastasis. No brain metastasis noted on that PET scan. Patient presents today confused and disoriented he recently had thoracentesis for a pleural effusion. He has not been eating or drinking well. He is normally on oxygen at 3 L continues to require 3 L. No report of chest or abdominal pain. No fever sweats or chills reported. MD complaint: altered mental status Review of Systems 2 Const: Denies: fever(s) or chills Card: Denies: chest pain Resp: Denies: dyspnea GI: Denies: abdominal pain : Denies: dysuria, urinary frequency or urinary urgency Musc: Denies: neck pain or back pain Skin/Breast: Denies: rash PFSH ED 2 PFSH: Medical History GERD (gastroesophageal reflux disease) Hypothyroidism Type 2 diabetes mellitus Hyperlipidemia Hypertension Surgical History Amputation of finger of left hand Distal left index finger H/O left cataract extraction Status post surgical removal of malignant neoplasm of skin Basal cell skin cancer Social History Smoking and tobacco/nicotine status: current every day tobacco/nicotine user cigarettes Packs smoked per day: 1 [ Other cigarette details: He previously smoked 2 to 3 packs of cigarettes daily, now 1 pack/day.] Alcohol intake: never Physical Exam 2 Const: COMMON NORMALS: no acute distress GENERAL APPEARANCE: cooperative and comfortable ORIENTATION/CONSCIOUSNESS: Yes awake HENMT: COMMON NORMALS: normocephalic, atraumatic and hearing grossly normal bilaterally HEAD & SCALP: normocephalic and atraumatic Resp: COMMON NORMALS: normal respiratory effort, No retractions, No use of accessory muscles and clear to auscultation bilaterally AUSCULTATION: clear to auscultation bilaterally Cardio: COMMON NORMALS: regular rate, regular rhythm and No murmurs present (Cardio) RATE: regular rate RHYTHM: regular rhythm GI: COMMON NORMALS: Soft to palpation and No hepatosplenomegaly present A USCULTATION: Yes normoactive bowel sounds PALPATION: Yes Soft to palpation, No Tenderness to palpation present (GI), No Guarding due to palpation present (GI) and Yes No hepatosplenomegaly present Extremity: COMMON NORMALS: normal to inspection, capillary refill normal, no clubbing, cyanosis or edema, no calf tenderness and no pedal edema Skin: COMMON NORMALS: no rashes or lesions noted GENERAL SKIN EXAM: no rashes or lesions noted Course 2 Vital Signs: Vital signs: Vital Signs Temperature 98.4 F 01/12/24 07:51 Pulse Rate 118 H 01/12/24 10:10 Respiratory Rate 18 01/12/24 10:10 Blood Pressure 119/74 01/12/24 10:10 Pulse Oximetry 93 01/12/24 10:10 Oxygen Delivery Me thod Nasal Cannula 01/12/24 09:00 Oxygen Flow Rate 3 01/12/24 09:00 MDM - Altered Mental Status Medical Decision Making Pathology report from recent biopsy reviewed shows squamous cell CA. Patient has widespread metastasis CT now shows intracranial lesion with hemorrhagic changes. Patient continues to have back pain despite palliative radiation to the spine. He is 85% on room air he is on oxygen at home on 3 L and improved to 93% without chest x-ray as well as shows persistent postobstructive pneumonia. Initially was given antibiotics here when the CT result came back reviewed all of the findings with the family. He is in acute renal failure as well. He is confused and disoriented family is requesting hospice care. They had discussed this previously did not want to pursue aggressive cares. They were to see Dr. Gallagher next week to review treatment options I did contact Dr. Gallagher he agrees there really are no good treatment options given his advanced disease with squamous cell CA as primary. Will discharge home with hospice with contacted hospice they will meet the patient at home with a bedside commode and a hospital bed. Medical Records I reviewed the patient's medical records. Lab Data I reviewed the patient's lab results. 01/12/24 08:09 01/12/24 08:09 Radiology Impressions Chest X-Ray 01/12/24 07:58 IMPRESSION: Very similar right lung opacities as above. Head CT 01/12/24 07:58 IMPRESSION: 1. Right parietal hyperdense intraparenchymal hemorrhage as above. Given the patient's history of metastatic lung cancer, hemorrhagic metastases is a consideration. 2. Findings discussed with Dr. Beyer at 9:00 a.m. on 01/12/2024. 3. Left mastoid effusion. Laboratory Results WBC 13.23 10^3/uL (3.29-11.43) H 01/12/24 08:09 RBC 4.28 10^6/uL (3.85-5.65) 01/12/24 08:09 Hgb 11.70 g/dL (11.27-16.99) 01/12/24 08:09 Hct 37.1 % (37-53) 01/12/24 08:09 MCV 86.7 fl (82-101) 01/12/24 08:09 MCH 27.3 pg (27-33) 01/12/24 08:09 MCHC 31.5 g/dL (30-55) 01/12/24 08:09 RDW 13.5 % (12.1-15.1) 01/12/24 08:09 Plt Count 259 10^3/cmm (157-399) 01/12/24 08:09 MPV 10.3 fL (7.4-10.4) 01/12/24 08:09 Lymph % (Auto) Not Reportable 01/12/24 08:09 [place] % (Auto) Not Reportable 01/12/24 08:09 Lymph # (Auto) Not Reportable 01/12/24 08:09 [place] # (Auto) Not Reportable 01/12/24 08:09 Total Counted 100 (0-100) 01/12/24 08:09 Atypical Lymphs % 1.0 % (0-5) 01/12/24 08:09 Absolute Neutrophils 11.2 10^3/cmm (1.4-6.5) H 01/12/24 08:09 Segmented Neutrophils 82 % 01/12/24 08:09 Abs Segm Neuts (Man) 10.8 10/cmm (1.6-7.1) H 01/12/24 08:09 Band Neutrophils 3.0 % 01/12/24 08:09 Abs Band Neuts (Man) 0.4 10^3/cmm (0.0-1.2) 01/12/24 08:09 Absolute Lymphocytes 0.8 10^3/cmm (1.2-3.4) L 01/12/24 08:09 Lymphocytes (Manual) 5 % 01/12/24 08:09 Monocytes (Manual) 4.0 % 01/12/24 08:09 Absolute Monocytes 0.5 10^3/cmm (0.1-0.6) 01/12/24 08:09 Eosinophils (Manual) 1 % 01/12/24 08:09 Absolute Eosinophils 0.1 10^3/cmm (0.0-0.7) 01/12/24 08:09 Basophils (Manual) 0.0 % 01/12/24 08:09 Absolute Basophils 0.0 10^3/cmm (0.0-0.2) 01/12/24 08:09 Metamyelocytes 2.0 % 01/12/24 08:09 Myelocytes 2.0 % 01/12/24 08:09 Nucleated RBCs 1.0 /100WBC (0-1) 01/12/24 08:09 Platelet Estimate Normal (Normal) 01/12/24 08:09 Specimen Type Arterial 01/12/24 08:13 Sample Site Radial, left 01/12/24 08:13 ABG pH 7.39 (7.35-7.45) 01/12/24 08:13 ABG pCO2 42.2 mmHg (35-45) 01/12/24 08:13 ABG pO2 62.7 mmHg (80.0-100.0) L 01/12/24 08:13 ABG PO2/FiO2 Ratio 0 01/12/24 08:13 ABG HCO3 25.3 mmol/L (22-26) 01/12/24 08:13 ABG O2 Saturation 92.9 01/12/24 08:13 ABG Base Excess 0.1 mmol/L (-2.0-2.0) 01/12/24 08:13 Nelson Test Pos 01/12/24 08:13 A-a O2 Gradient 14.9 mmHg (5-10) H 01/12/24 08:13 Hematocrit 34.8 % (42-52) L 01/12/24 08:13 Hgb O2 Saturation 90.5 % (95-100) L 01/12/24 08:13 Carboxyhemoglobin 2.1 %THgb (0.4-20.1) 01/12/24 08:13 Methemoglobin 0.5 % (0.4-1.5) 01/12/24 08:13 Total Hemoglobin 11.4 g/dL (14-18) L 01/12/24 08:13 Sodium 145.0 mmol/L (131-143) H 01/12/24 08:13 Potassium 3.8 mmol/L (3.5-5.0) 01/12/24 08:13 Glucose 177.0 mg/dL (70-115) H 01/12/24 08:13 Ionized Calcium 1.4 mmol/L (1.1-1.4) 01/12/24 08:13 O2 Delivery Device Nc 01/12/24 08:13 O2 Liters/Min 3.0 % 01/12/24 08:13 FiO2 32.0 % 01/12/24 08:13 Sports Medicine Specialist ID [email or web address] 01/12/24 08:13 Sodium 142 mmol/L (136-145) 01/12/24 08:09 Potassium 4.3 mmol/L (3.5-5.1) 01/12/24 08:09 Chloride 99 mmol/L (98-107) 01/12/24 08:09 Carbon Dioxide 21 mmol/L (22-29) L 01/12/24 08:09 Anion Gap 26.3 (5-19) H 01/12/24 08:09 BUN 83 mg/dL (8-23) H* D 01/12/24 08:09 Creatinine 1.7 mg/dL (0.7-1.2) H 01/12/24 08:09 GFR Calculation 40.8 mL/min (90-130) L 01/12/24 08:09 Glucose 176 mg/dL (65-115) H 01/12/24 08:09 POC Glucose 190 mg/dL (70-110) H 01/12/24 07:54 Calculated Osmolality 323 mOsm/kg (285-295) H 01/12/24 08:09 Lactic Acid 2.5 mmol/L (0.5-2.2) H 01/12/24 08:09 Calcium 9.8 mg/dL (8.5-10.5) 01/12/24 08:09 Total Bilirubin 0.4 mg/dL (0.15-1.2) 01/12/24 08:09 AST 61 U/L (0-40) H 01/12/24 08:09 ALT 17 U/L (0-41) 01/12/24 08:09 Alkaline Phosphatase 113 U/L (40-130) 01/12/24 08:09 Troponin T Baseline 36 ng/L (0-15) H 01/12/24 08:09 Troponin T 120 Minute 34.82 ng/L (0-15) H 01/12/24 10:29 Delta Troponin T -1.18 ABS# (0-10) L 01/12/24 10:29 Total Protein 6.9 g/dL (6.6-8.7) 01/12/24 08:09 Albumin 3.2 g/dL (3.5-5.2) L 01/12/24 08:09 Globulin 3.7 g/dL (1.3-4.6) 01/12/24 08:09 Urine Color Yellow (Yellow) 01/12/24 02:06 Urine Appearance Hazy (CLEAR) A 01/12/24 02:06 Urine pH 5 (5-7) 01/12/24 02:06 Ur Specific [place] 1.030 (1.005-1.030) 01/12/24 02:06 Urine Protein Trace (Negative) 01/12/24 02:06 Urine Glucose (UA) Norm (Normal) 01/12/24 02:06 Urine Ketones Negative (Negative) 01/12/24 02:06 Urine Blood 2+ (Negative) H 01/12/24 02:06 Urine Nitrate Positive (Negative) H 01/12/24 02:06 Urine Bilirubin Neg (Negative) 01/12/24 02:06 Urine Urobilinogen Neg mg/dL (Negative) 01/12/24 02:06 Ur Leukocyte Esterase Negative (Negative) 01/12/24 02:06 Urine RBC 0-4 /hpf (0-2) H 01/12/24 02:06 Urine WBC 5-10 /hpf (0-5) H 01/12/24 02:06 Ur Squamous Epith Cells 0-4 /hpf (0-5) H 01/12/24 02:06 Ur Transition Epith Cell 0-4 /hpf 01/12/24 02:06 Amorphous Sediment Not Reportable 01/12/24 02:06 Urine Bacteria 3+ /hpf (NONE) H 01/12/24 02:06 Hyaline Casts 0-4 /lpf H 01/12/24 02:06 Coarse Granular Casts 0-4 /lpf H 01/12/24 02:06 Serum Ketones Negative (Negative) 01/12/24 08:09 All radiology interpretation(s) finalized by discharge Discharge Plan Discharge Patient Disposition: Home Clinical Impression: Squamous cell carcinoma of lung, stage IV, Metastatic cancer to brain, Acute kidney injury, Delirium due to another medical condition Condition: Stable Prescriptions: No Action Spiriva Respimat 2.5 mcg/actuation mist 2 puff inhalation DAILY Qty: 4 3RF metformin 1,000 mg tablet 1,000 mg PO BID gemfibrozil 600 mg tablet 600 mg PO BID lisinopril 30 mg tablet 30 mg PO BEDTIME sucralfate [Carafate] 100 mg/mL suspension 10 ml PO QID Qty: 420 0RF Rx Instructions: Swallow 10ml after food and at HS; use after food/drink (DME) Portable oxygen concentrator and supplies See Rx Instructions .Route .MEDSUPPLY Qty: 1 0RF Rx Instructions: As directed. 2L mirtazapine [Remeron] 15 mg tablet 15 mg PO BEDTIME Qty: 30 0RF oxycodone 15 mg tablet 15 mg PO Q6H PRN (Reason: pain) 30 Days Qty: 120 0RF albuterol sulfate 90 mcg/actuation HFA aerosol inhaler 2 puff INHALATION Q4H PRN (Reason: Shortness Of Breath Or Wheezing) bisoprolol-hydrochlorothiazide 10-6.25 mg tablet 1 tab PO QAM levothyroxine 25 mcg tablet 37.5 mcg PO QAM ondansetron 4 mg tablet,disintegrating 4 mg PO Q8H PRN (Reason: Nausea And Vomiting) Discharge Orders: Discharge ED (Routine); Ordered 01/12/24 Ordered By: Garcia Beyre Referrals: Daniel,Tiffanie Dolores, DO [Primary Care Provider] - Discharge Diet: Advance as tolerated Discharge Activity: Resume usual activity Patient Instructions: Altered Mental Status (ED), Opioid Safety, Pain Management Activity Restrictions/Additional Instructions: [facility]. Please realize this is an emergency room and that we are providing you with a medical screening exam and this may not be complete and all inclusive of all the testing and or work up that you may need to determine your ailment or severity of your illness. It is very important that you follow up as instructed or that you return to the Emergency Department should you have concerns or if your condition changes or worsens in any way. [facility] will meet you at home with a hospital bed and a bedside comode. Dr. Gallagher is aware you have been enrolled in hospice. Coding Level of Care Code ED [employer] Operator for Bessy Delgado
--- NOTE | 2024-01-12 08:06 | PC.NURSE ---
Pt update & Glucose via fingerstick: 190. per pts family pt has not taken metformin today, but states pt took it yesterday. pt family also states pt has had recent difficulty swallowing, decreased appetite, and reports incontinent episodes starting late last night.
[2024-01-12 08:14] LABS: Glucose Point of Care 190 mg/dL (70-110)
[2024-01-12 08:18] LABS: Hematocrit 37.1 % (37-53); Mean Corpuscular HGB Conc 31.5 g/dL (30-55); Mean Corpuscular Hemoglobin 27.3 pg (27-33); Mean Corpuscular Volume 86.7 fl (82-101); Mean Platelet Volume 10.3 fL (7.4-10.4); Platelet Count 259 10^3/cmm (157-399); Red Blood Count 4.28 10^6/uL (3.85-5.65); Red Cell Distribution Width 13.5 % (12.1-15.1); White Blood Count 13.23 10^3/uL (3.29-11.43)
--- NOTE | 2024-01-12 08:20 | PC.PHAR ---
pts family verified pts medications-states the pts morphine 30mg q8h prn was dced ext shows last filled 12/26/23 14d/s -pts family states the pt is not taking any otc medications
[2024-01-12 08:24] LABS: ABG PCO2 42.2 mmHg (35-45); ABG PH Result 7.39 (7.35-7.45); Alveolar-Arterial Oxygen Gradi 14.9 mmHg (5-10); Arterial Blood Gas Hematocrit 34.8 % (42-52); Base Excess ABG 0.1 mmol/L (-2.0-2.0); Blood Gas Allen Test Pos; Blood Gas Operator Identificat AMH; Blood Gas Sample Site Radial, left; Blood Gas Sample Type Arterial; Carboxyhemoglobin 2.1 %THgb (0.4-20.1); HCO3 ABG 25.3 mmol/L (22-26); HGB O2 Sat 90.5 % (95-100); Ionized Calcium Level - ABG 1.4 mmol/L (1.1-1.4); Methemoglobin 0.5 % (0.4-1.5); Oxygen Device NC; Oxygen Saturation ABG 92.9; PO2 ABG 62.7 mmHg (80.0-100.0); PO2 FiO2 Ratio Arterial Blood 0; Potassium Level - ABG 3.8 mmol/L (3.5-5.0); Total Hemoglobin 11.4 g/dL (14-18)
[2024-01-12 08:28] LABS: Ketone (Acetest) Serum Negative (Negative)
[2024-01-12 08:34] LABS: Troponin(5th) Baseline 36 ng/L (0-15)
[2024-01-12 08:35] LABS: Lactic Sepsis W/Reflex 2.5 mmol/L (0.5-2.2)
[2024-01-12 08:36] LABS: Alanine Aminotransferase 17 U/L (0-41); Albumin Level 3.2 g/dL (3.5-5.2); Alkaline Phosphatase 113 U/L (40-130); Anion Gap 26.3 (5-19); Aspartate Amino Transferase 61 U/L (0-40); Calcium 9.8 mg/dL (8.5-10.5); Carbon Dioxide 21 mmol/L (22-29); Chloride 99 mmol/L (98-107); Creatinine Clr Calc Pharmacy 45.1974; Globulin 3.7 g/dL (1.3-4.6); Glomerular Filtration Rate 40.8 mL/min (90-130); Glucose 176 mg/dL (65-115); Osmolality Calculated 323 mOsm/kg (285-295); Potassium 4.3 mmol/L (3.5-5.1); Sodium 142 mmol/L (136-145); Total Bilirubin 0.4 mg/dL (0.15-1.2); Total Protein 6.9 g/dL (6.6-8.7)
[2024-01-12 08:38] LABS: Blood Urea Nitrogen 83 mg/dL (8-23)
[2024-01-12 08:55] LABS: Slide Review Slide Review Perform
[2024-01-12 08:56] LABS: Absolute Eosinophils 0.1 10^3/cmm (0.0-0.7); Absolute Neutrophil 11.2 10^3/cmm (1.4-6.5); Absolute Segmented Neutrophil 10.8 10/cmm (1.6-7.1); Band Neutrophils Absolute 0.4 10^3/cmm (0.0-1.2); Eosinophils 1 %; Lymphocytes 5 %; Lymphocytes Absolute 0.8 10^3/cmm (1.2-3.4); Monocytes Absolute 0.5 10^3/cmm (0.1-0.6); Platelet Estimate Normal (Normal); Segmented Neutrophils 82 %; Total Cells Counted 100 (0-100)
[2024-01-12] MEDS: piperacillin-tazobactam 3.375 GM in sodium chloride 0.9% (plus) 50 ML IV (09:03)
[2024-01-12] MEDS: sodium chloride 0.9% 1,000 ML 999 ML IV (09:04)
[2024-01-12] MEDS: vancomycin 1,000 MG in sodium chloride 0.9% 250 ML 250 MG IV (09:31)
[2024-01-12 10:01] LABS: Reflex Lactate Order REFLEX LACTIC ORDERD
[2024-01-12 10:03] LABS: Glucose Urine UA Norm (Normal); Ketones Urine Negative (Negative); Protein Urine Trace (Negative); Urine Appearance Hazy (CLEAR); Urine Color Yellow (Yellow); pH Urine 5 (5-7)
[2024-01-12 10:06] LABS: Add Urine Microscopic? YES; Bilirubin Urine Neg (Negative); Blood Urine 2+ (Negative); Leukocyte Esterase Urine Negative (Negative); Nitrate Urine Positive (Negative); Urobilinogen Urine Neg (Negative)
[2024-01-12 10:08] LABS: Bacteria Urine 3+ /hpf; RBC Urine 0-4 /hpf (0-2); Squamous Epithelial Cell Urine 0-4 /hpf (0-5); Transitional Epi Cells Urine 0-4 /hpf
[2024-01-12 10:09] LABS: Add Urine Culture? Yes; Coarse Granular Casts Urine 0-4 /lpf; Hyaline Casts Urine 0-4 /lpf
[2024-01-12 10:58] LABS: Troponin 5 2HR 34.82 ng/L (0-15)
[2024-01-12 10:59] LABS: Troponin 5 2HR Delta -1.18 ABS# (0-10)
== END 2024-01-12 13:37 | disposition home or self-care (01) ==
PROVIDERS: Emergency Provider Family Medicine; PCP Family Medicine
DX: F05 Delirium due to known physiological condition (principal); N17.9 Acute kidney failure, unspecified; C34.90 Malignant neoplasm of unspecified part of unspecified bronchus or lung; C79.31 Secondary malignant neoplasm of brain; Z79.84 Long term (current) use of oral hypoglycemic drugs; E11.9 Type 2 diabetes mellitus without complications; E78.5 Hyperlipidemia, unspecified; I10 Essential (primary) hypertension; F17.210 Nicotine dependence, cigarettes, uncomplicated
CPT/HCPCS: 36415; 36416; 36600; 51702; 70450; 71045; 80051; 80053; 81001; 82009; 82330; 82805; 82962; 83605; 84484; 85007; 85025; 87040; 87077; 87086; 87186; 93005; 96365; 96367; 99285; J2543; J3370; J7030; J7050